=== PATIENT | male | born 1995 | race Caucasian/White ===

== ENCOUNTER 2019-02-27 09:20 | Emergency (ER) | payer SELFPAY ==
--- NOTE | 2019-02-27 09:36 | EDM.PDOC ---
ED HPI GENERAL MEDICAL PROBLEM - General Chief Complaint: Lower Extremity Injury/Pain Stated Complaint: FOOT COMPLAINT Time Seen by Provider: 02/27/19 09:31 - History of Present Illness INITIAL COMMENTS - FREE TEXT/NARRATIVE: HISTORY AND PHYSICAL: History of present illness: Patient's a 24-year-old white male presents concern of left foot pain patient states he is 3 areas of callus on his plantar surface of his foot that has been causing some discomfort but no fever no erythema no fluctuance he does not recall any specific trauma Review of systems: As per history of present illness and below otherwise all systems reviewed and negative. Past medical history: As per history of present illness and as reviewed below otherwise noncontributory. Surgical history: As per history of present illness and as reviewed below otherwise noncontributory. Social history: No reported history of drug or alcohol abuse. Family history: As per history of present illness and as reviewed below otherwise noncontributory. Physical exam: HEENT: Atraumatic, normocephalic, pupils reactive, negative for conjunctival pallor or scleral icterus, mucous membranes moist, throat clear, neck supple, nontender, trachea midline. Lungs: Clear to auscultation, breath sounds equal bilaterally, chest nontender. Heart: S1S2, regular, negative for clicks, rubs, or JVD. Abdomen: Soft, nondistended, nontender. Negative for masses or hepatosplenomegaly. Negative for costovertebral tenderness. Pelvis: Stable nontender. Genitourinary: Deferred. Rectal: Deferred. Extremities: Left foot has 3 areas of callus with some mild tenderness without erythema fluctuance patient's neurovascular exam is heme S is unremarkable. Neuro: Awake, alert, oriented. Cranial nerves II through XII unremarkable. Cerebellum unremarkable. Motor and sensory unremarkable throughout. Exam nonfocal. Diagnostics: X-ray left foot Therapeutics: None Impression: #1 left foot pain Definitive disposition and diagnosis as appropriate pending reevaluation and review of above. left heel Pain Score (Numeric/FACES): 8 - Related Data Allergies Allergy/AdvReac Type Severity Reaction Status Date / Time No Known Allergies Allergy Verified 02/27/19 09:28 Home Meds: Home Meds . [No Known Home Meds] 02/27/19 [History] Review of Systems - Review of Systems Review Of Systems: ROS reveals no pertinent complaints other than HPI. ED EXAM, GENERAL - Physical Exam Exam: See Below (See dictation) Course - Vital Signs Last Recorded V/S: Last Vital Signs Temp 36.2 C 02/27/19 09:28 Pulse 57 L 02/27/19 09:28 Resp 16 02/27/19 09:28 BP 143/65 H 02/27/19 09:28 Pulse Ox 100 02/27/19 09:28 Departure - Departure Time of Disposition: 09:35 Disposition: Home, Self-Care 01 Condition: Good Clinical Impression: Foot pain - Discharge Information Referrals: PCP,Unknown [Primary Care Provider] - Additional Instructions: The following information is given to patients seen in the emergency department who are being discharged to home. This information is to outline your options for follow-up care. We provide all patients seen in our emergency department with a follow-up referral. The need for follow-up, as well as the timing and circumstances, are variable depending upon the specifics of your emergency department visit. If you don't have a primary care physician on staff, we will provide you with a referral. We always advise you to contact your personal physician following an emergency department visit to inform them of the circumstance of the visit and for follow-up with them and/or the need for any referrals to a consulting specialist. The emergency department will also refer you to a specialist when appropriate. This referral assures that you have the opportunity for followup care with a specialist. All of these measure are taken in an effort to provide you with optimal care, which includes your followup. Under all circumstances we always encourage you to contact your private physician who remains a resource for coordinating your care. When calling for followup care, please make the office aware that this follow-up is from your recent emergency room visit. If for any reason you are refused follow-up, please contact the [facility] emergency department at and asked to speak to the emergency department charge nurse. Sam Gonzalez [facility] - Podiatry [address] [place] [id number] Fax: [phone] Motrin/Tylenol as directed follow-up podiatry clinic above call to schedule appointment return as needed as discussed
--- NOTE | 2019-02-27 10:30 | CR ---
INDICATION: Foot pain. TECHNIQUE: Portable AP and lateral projections. FINDINGS: No significant soft tissue swelling is apparent. No acute fractures or dislocations identified and no significant arthritic changes are seen. Incidental os tibiale externum. IMPRESSION: No significant osseous abnormality. Dictated by Paddy Plascencia MD @ Feb 27 2019 10:26AM Signed by Dr. Paddy Plascencia @ Feb 27 2019 10:28AM
== END 2019-02-27 10:44 | disposition home or self-care (01) ==
LOC: MW.ED 09:20
DX: M79.672 Pain in left foot (principal)
CPT/HCPCS: 73620-26-LT; 73620-LT; 99283-25

== ENCOUNTER 2019-09-16 12:37 | Emergency (ER) | payer OTHER ==
--- NOTE | 2019-09-16 13:12 | EDM.PDOC ---
ED HPI GENERAL MEDICAL PROBLEM - General Chief Complaint: Genitourinary Problem Stated Complaint: STD TESTING Time Seen by Provider: 09/16/19 13:03 Source of Information: Reports: Patient History Limitations: Reports: No Limitations - History of Present Illness INITIAL COMMENTS - FREE TEXT/NARRATIVE: HISTORY AND PHYSICAL: History of present illness: Patient is a 24-year-old male presents to the ED with complaint of possible STD. Patient states he has been having penile discharge and dysuria. He reports some testicular discomfort but no swelling. He denies fevers, chills, nausea, vomiting, abdominal pain, diarrhea, hematuria, back pain. Review of systems: As per history of present illness and below otherwise all systems reviewed and negative. Past medical history: As per history of present illness and as reviewed below otherwise noncontributory. Surgical history: As per history of present illness and as reviewed below otherwise noncontributory. Social history: No reported history of drug or alcohol abuse. Family history: As per history of present illness and as reviewed below otherwise noncontributory. Physical exam: General: Patient sitting comfortably in no acute distress and nontoxic appearing HEENT: Atraumatic, normocephalic, pupils reactive, negative for conjunctival pallor or scleral icterus, mucous membranes moist, throat clear, neck supple, nontender, trachea midline. No meningeal signs. Lungs: Clear to auscultation, breath sounds equal bilaterally, chest nontender. Heart: S1S2, regular, negative for clicks, rubs, or overt murmur. Abdomen: Soft, nondistended, nontender. Negative for masses or hepatosplenomegaly. Negative for costovertebral tenderness. No rigidity, rebound , guarding. Pelvis: Stable nontender. Genitourinary: No scrotal swelling, no tenderness to palpation of the cords, testicles, epididymis. Normal cremasteric reflex Rectal: Deferred. Extremities: Atraumatic, negative for cords or calf pain. Neurovascular unremarkable. Neuro: Awake, alert, oriented. Cranial nerves II through XII unremarkable. Cerebellum unremarkable. Motor and sensory unremarkable throughout. Exam nonfocal. Notes: Scrotal exam is benign, no US done today as torsion, fourniers gangrene, etc. unlikely given history and examination. Diagnostics: UA, urine gonorrhea/chlamydia Therapeutics: 250 Rocephin IM 1g Azithromycin PO Prescriptions: none Impression: Penile discharge, STD concern Plan: Refrain from sexual activity for the next 2 weeks as instructed Follow up with primary care provider Return to ED as needed as discussed Definitive disposition and diagnosis as appropriate pending reevaluation and review of above. - Related Data Allergies Allergy/AdvReac Type Severity Reaction Status Date / Time No Known Allergies Allergy Verified 09/16/19 13:03 Home Meds: Home Meds . [No Known Home Meds] 02/27/19 [History] Past Medical History - Past Health History Medical/Surgical History: Denies Medical/Surgical History Social & Family History - Family History Family Medical History: Noncontributory ED ROS GENERAL - Review of Systems Review Of Systems: Comprehensive ROS is negative, except as noted in HPI. ED EXAM, RENAL/ - Physical Exam Exam: See Below (see dictation) Course - Vital Signs Last Recorded V/S: Last Vital Signs Temp 97.8 F 09/16/19 13:01 Pulse 89 09/16/19 13:01 Resp 18 09/16/19 13:01 BP 112/55 L 09/16/19 13:01 Pulse Ox 98 09/16/19 13:01 - Orders/Labs/Meds Orders: Active Orders 24 hr Category Date Time Status CHLAMYDIA AND GONORRHEA BY TMA Stat Lab 09/16/19 12:53 Ordered Labs: Laboratory Tests 09/16/19 Range/Units 13:12 Urine Color YELLOW Urine Appearance CLEAR Urine pH 6.5 (5.0-8.0) Ur Specific [place] 1.025 (1.001-1.035) Urine Protein NEGATIVE (NEGATIVE) mg/dL Urine Glucose (UA) NEGATIVE (NEGATIVE) mg/dL Urine Ketones NEGATIVE (NEGATIVE) mg/dL Urine Occult Blood NEGATIVE (NEGATIVE) Urine Nitrite NEGATIVE (NEGATIVE) Urine Bilirubin NEGATIVE (NEGATIVE) Urine Urobilinogen 0.2 (<2.0) EU/dL Ur Leukocyte Esterase NEGATIVE (NEGATIVE) Meds: Medications Discontinued Medications Generic Name Dose Route Start Last Admin Trade Name Freq PRN Reason Stop Dose Admin Azithromycin 1,000 mg 09/16/19 13:29 Zithromax PO 09/16/19 13:30 NOW STA Ceftriaxone Sodium 250 mg/ 1 mls @ 1 mls/sec 09/16/19 13:29 Lidocaine HCl IM 09/16/19 13:30 ONETIME ONE Departure - Departure Time of Disposition: 13:38 Disposition: Home, Self-Care 01 Condition: Good Clinical Impression: Penile discharge, Concern about STD in male without diagnosis - Discharge Information Referrals: PCP,None [Primary Care Provider] - Forms: ED Department Discharge Additional Instructions: The following information is given to patients seen in the emergency department who are being discharged to home. This information is to outline your options for follow-up care. We provide all patients seen in our emergency department with a follow-up referral. The need for follow-up, as well as the timing and circumstances, are variable depending upon the specifics of your emergency department visit. If you don't have a primary care physician on staff, we will provide you with a referral. We always advise you to contact your personal physician following an emergency department visit to inform them of the circumstance of the visit and for follow-up with them and/or the need for any referrals to a consulting specialist. The emergency department will also refer you to a specialist when appropriate. This referral assures that you have the opportunity for follow-up care with a specialist. All of these measure are taken in an effort to provide you with optimal care, which includes your follow-up. Under all circumstances we always encourage you to contact your private physician who remains a resource for coordinating your care. When calling for follow-up care, please make the office aware that this follow-up is from your recent emergency room visit. If for any reason you are refused follow-up, please contact the [facility] Emergency Department at and asked to speak to the emergency department charge nurse. [facility] [address] [place] [address] [id number] [address] [address] Refrain from sexual activity for the next 2 weeks as instructed Follow up with primary care provider Return to ED as needed as discussed Sepsis Event Note - Evaluation Sepsis Screening Result: No Definite Risk - Focused Exam Vital Signs: Vital Signs Temp Pulse Resp BP Pulse Ox 09/16/19 13:01 97.8 F 89 18 112/55 L 98 Date Exam was Performed: 09/16/19 Time Exam was Performed: 13:31 - My Orders Last 24 Hours: My Active Orders 09/16/19 12:53 CHLAMYDIA AND GONORRHEA BY TMA Stat - Assessment/Plan Last 24 Hours: My Active Orders 09/16/19 12:53 CHLAMYDIA AND GONORRHEA BY TMA Stat
[2019-09-16] MEDS ORDERED: Azithromycin 250 MG Tab PO STA (13:29)
[2019-09-16] MEDS ORDERED: cefTRIAXone 250 MG in Lidocaine 1% 1 ML IM ONE (13:29)
== END 2019-09-16 14:03 | disposition home or self-care (01) ==
LOC: MW.ED 12:37
DX: R36.9 Urethral discharge, unspecified (principal)
CPT/HCPCS: 81003; 87491; 87591; 96372; 99283; A9270; J0696; J2001

== ENCOUNTER 2020-09-05 22:41 | Day surgery (SDC) | payer OTHER ==
[2020-09-05] MEDS ORDERED: Lactated Ringers 1,000 ML IV ONE (23:30)
[2020-09-05] MEDS ORDERED: Ondansetron 4 MG/2 ML SDV IVPUSH ONE (23:30)
[2020-09-05] MEDS ORDERED: Morphine 4 MG/ML Syringe IVPUSH ONE (23:30)
[2020-09-05 23:44] LABS: BLOOD UREA NITROGEN,BUN 12 mg/dL (7.0-18.0); CARBON DIOXIDE,CO2 23.7 mmol/L (21.0-32.0); CHLORIDE,CL 104 mmol/L (98-107); GLUCOSE RANDOM 119 mg/dL (74-106); LIPASE 90 U/L (73-393); POTASSIUM,K 4.1 mmol/L (3.5-5.1); SODIUM,NA 140 mmol/L (136-148)
[2020-09-06] MEDS ORDERED: Iopamidol 755 MG/ML 500 ML Multipack Bottle IVPUSH STA (00:13)
--- NOTE | 2020-09-06 00:28 | CT ---
INDICATION: Right lower quadrant abdominal pain. Evaluate for appendicitis. COMPARISON: None available TECHNIQUE: CT examination of the abdomen and pelvis was performed with the uneventful intravenous administration of 100 cc of Isovue 370 while 2.5 mm thick axial sections were obtained from the lung bases through the pubic symphysis. Oral contrast was not administered. Please note that all CT scans at this facility use dose modulation, iterative reconstruction, and/or weight-based dosing when appropriate to reduce radiation dose to as low as reasonably achievable. FINDINGS: In the abdomen, the liver, spleen, pancreas, and ADRENALS are normal in appearance. The kidneys are normal in appearance. The gallbladder is normal in appearance. The abdominal aorta is normal in caliber with no sign of dilatation. There is no sign of retroperitoneal mass or adenopathy. The stomach, loops of small bowel, and colon in the abdomen are normal in appearance. In the pelvis, the appendix is mildly dilated at 9 millimeters with mild thickening of the wall of the appendix and mild periappendiceal inflammatory reaction. There is no sign of any fluid collection adjacent to the appendix, no sign of any extraluminal gas, and no sign of free fluid in the pelvis. The findings are that of acute, non ruptured appendicitis. The loops of small bowel and colon in the pelvis are normal in appearance. The prostate is normal in appearance. The urinary bladder is normal in appearance. There is no sign of pelvic or inguinal mass or adenopathy. There is no sign of free air or free fluid in the abdomen or pelvis. There is a nodular area of density in the posterior-lateral right lung base which is probably scarring from previous inflammatory disease. Similar nodular scarring is seen in the anterior-lateral left lung base along the major fissure. The lung bases are otherwise clear. The osseous structures are normal in appearance for the patient`s age. IMPRESSION: Normal CT of the abdomen with contrast. CT of the pelvis shows findings of acute, non ruptured appendicitis. Nodular areas of probable scarring in the right posterior-lateral and left anterior-lateral lung base. Please note that all CT scans at this facility use dose modulation, iterative reconstruction, and/or weight-based dosing when appropriate to reduce radiation dose to as low as reasonably achievable. Dictated by Lauro Parisi MD @ Sep 06 2020 12:23AM Signed by Dr. Lauro Parisi @ Sep 06 2020 12:27AM
[2020-09-06] MEDS ORDERED: Piperacillin/Tazobactam 4.5 GM in Sodium Chloride 0.9% 100 ML IV ONE (00:38)
[2020-09-06 01:23] LABS: CORONAVIRUS COVID-19 NAA NEGATIVE (NEGATIVE); INFLUENZA A NAA NEGATIVE (NEGATIVE); INFLUENZA B NAA NEGATIVE (NEGATIVE)
--- NOTE | 2020-09-06 01:41 | PCM.SN.2 ---
- Free Text/Narrative Note: pt seen, chart reviewed, ct and h/p cw acute appendicitis, proceed w surgery, appendectomy, lap vs open, rb dw pt, including but not limited to, bleeding, more infection, damage to nearby organs and drain placement; pt concurred proceed w surgery; anastacia, tor scott, to surgery; [id number]
[2020-09-06] MEDS ORDERED: Lactated Ringers 1,000 ML IV SCH ×2 (01:45→03:30)
[2020-09-06] MEDS ORDERED: Midazolam 1 MG/ML 2 ML SDV ONE (01:52)
[2020-09-06] MEDS ORDERED: fentaNYL 250 MCG/5 ML SDV ONE ×2 (01:52→02:35)
[2020-09-06] MEDS ORDERED: Propofol 200 MG/20 ML SDV ONE (01:52)
[2020-09-06] MEDS ORDERED: Glycopyrrolate 0.2 MG/ML SDV ONE (01:53)
[2020-09-06] MEDS ORDERED: Ondansetron 4 MG/2 ML SDV ONE (01:53)
[2020-09-06] MEDS ORDERED: Rocuronium Bromide 50 MG/5 ML Syringe ONE (01:53)
[2020-09-06] MEDS ORDERED: Lidocaine 2% 5 ML SDV ONE (01:53)
[2020-09-06] MEDS ORDERED: Ketorolac 30 MG/ML SDV ONE (01:53)
[2020-09-06] MEDS ORDERED: Bupivacaine 25%/EPINEPHrine/PF 30 ML ONE (01:53)
[2020-09-06] MEDS ORDERED: Octyl 2-Cyanoacrylate 1 Tube ONE (01:54)
[2020-09-06] MEDS ORDERED: Acetaminophen 1,000 MG in Premix Bag 1 BAG IV PRN (02:10)
[2020-09-06] MEDS ORDERED: fentaNYL 100 MCG/2 ML SDV IVPUSH PRN (02:10)
--- NOTE | 2020-09-06 02:11 | PCM.PREANE ---
Preanesthetic Assessment - Anesthesia/Transfusion/Family Hx Anesthesia History: No Prior Anesthesia Family History of Anesthesia Reaction: No - Physical Assessment NPO Status Date: 09/05/20 NPO Status Time: 18:00 Vital Signs: Last Vital Signs Temp 35.9 C L 09/05/20 22:57 Pulse 75 09/06/20 00:13 Resp 18 09/05/20 22:57 BP 118/55 L 09/06/20 00:13 Pulse Ox 97 09/06/20 00:13 Height: 1.85 m Weight: 84.368 kg ASA Class: 1E - Lab Values: Laboratory Last Values WBC 17.12 K/uL (4.0-11.0) H 09/05/20 23:00 RBC 5.61 M/uL (4.50-5.90) 09/05/20 23:00 Hgb 16.6 g/dL (13.0-17.0) 09/05/20 23:00 Hct 48.1 % (38.0-50.0) 09/05/20 23:00 MCV 85.7 fL (80.0-98.0) 09/05/20 23:00 MCH 29.6 pg (27.0-32.0) 09/05/20 23:00 MCHC 34.5 g/dL (31.0-37.0) 09/05/20 23:00 RDW Std Deviation 43.9 fl (28.0-62.0) 09/05/20 23:00 RDW Coeff of [place] 14 % (11.0-15.0) 09/05/20 23:00 Plt Count 276 K/uL (150-400) 09/05/20 23:00 MPV 11.50 fL (7.40-12.00) 09/05/20 23:00 Neut % (Auto) 83.4 % (48.0-80.0) H 09/05/20 23:00 Lymph % (Auto) 9.6 % (16.0-40.0) L 09/05/20 23:00 [place] % (Auto) 6.0 % (0.0-15.0) 09/05/20 23:00 Eos % (Auto) 0.8 % (0.0-7.0) 09/05/20 23:00 Baso % (Auto) 0.2 % (0.0-1.5) 09/05/20 23:00 Neut # (Auto) 14.3 K/uL (1.4-5.7) H 09/05/20 23:00 Lymph # (Auto) 1.6 K/uL (0.6-2.4) 09/05/20 23:00 [place] # (Auto) 1.0 K/uL (0.0-0.8) H 09/05/20 23:00 Eos # (Auto) 0.1 K/uL (0.0-0.7) 09/05/20 23:00 Baso # (Auto) 0.0 K/uL (0.0-0.1) 09/05/20 23:00 Nucleated RBC % 0.0 /100WBC 09/05/20 23:00 Nucleated RBCs # 0 K/uL 09/05/20 23:00 Sodium 140 mmol/L (136-148) 09/05/20 23:00 Potassium 4.1 mmol/L (3.5-5.1) 09/05/20 23:00 Chloride 104 mmol/L (98-107) 09/05/20 23:00 Carbon Dioxide 23.7 mmol/L (21.0-32.0) 09/05/20 23:00 BUN 12 mg/dL (7.0-18.0) 09/05/20 23:00 Creatinine 1.2 mg/dL (0.8-1.3) 09/05/20 23:00 Est Cr Clr Drug Dosing 107.27 mL/min 09/05/20 23:00 Estimated GFR (MDRD) > 60.0 ml/min 09/05/20 23:00 Glucose 119 mg/dL (74-106) H 09/05/20 23:00 Calcium 8.8 mg/dL (8.5-10.1) 09/05/20 23:00 Total Bilirubin 0.3 mg/dL (0.2-1.0) 09/05/20 23:00 AST 23 IU/L (15-37) 09/05/20 23:00 ALT 39 IU/L (14-63) 09/05/20 23:00 Alkaline Phosphatase 89 U/L (46-116) 09/05/20 23:00 Total Protein 7.8 g/dL (6.4-8.2) 09/05/20 23:00 Albumin 4.2 g/dL (3.4-5.0) 09/05/20 23:00 Globulin 3.6 g/dL (2.6-4.0) 09/05/20 23:00 Albumin/Globulin Ratio 1.2 (0.9-1.6) 09/05/20 23:00 Lipase 90 U/L (73-393) 09/05/20 23:00 Influenza Type A RNA NEGATIVE (NEGATIVE) 09/06/20 00:40 Influenza Type B RNA NEGATIVE (NEGATIVE) 09/06/20 00:40 SARS-CoV-2 RNA (RILEY) NEGATIVE (NEGATIVE) 09/06/20 00:40 - Allergies Allergies/Adverse Reactions: Allergies Allergy/AdvReac Type Severity Reaction Status Date / Time No Known Allergies Allergy Verified 09/05/20 23:01 - Acknowledgements Anesthesia Type Planned: General Anesthesia Pt an Appropriate Candidate for the Planned Anesthesia: Yes Alternatives and Risks of Anesthesia Discussed w Pt/Guardian: Yes Pt/Guardian Understands and Agrees with Anesthesia Plan: Yes PreAnesthesia Questionnaire - Past Health History Medical/Surgical History: Denies Medical/Surgical History HEENT History: Reports: None Cardiovascular History: Reports: None Respiratory History: Reports: None Gastrointestinal History: Reports: None Genitourinary History: Reports: None Musculoskeletal History: Reports: None Neurological History: Reports: None Psychiatric History: Reports: None Endocrine/Metabolic History: Reports: None Hematologic History: Reports: None Immunologic History: Reports: None Oncologic (Cancer) History: Reports: None Dermatologic History: Reports: None - Infectious Disease History Infectious Disease History: Reports: None - Past Surgical History Head Surgeries/Procedures: Reports: None HEENT Surgical History: Reports: None Cardiovascular Surgical History: Reports: None Respiratory Surgical History: Reports: None GI Surgical History: Reports: None Male Surgical History: Reports: None Endocrine Surgical History: Reports: None Neurological Surgical History: Reports: None Musculoskeletal Surgical History: Reports: None Oncologic Surgical History: Reports: None Dermatological Surgical History: Reports: None - SUBSTANCE USE Tobacco Use Status *Q: Current Every Day Tobacco User Tobacco Use Within Last Twelve Months: Cigarettes Recreational Drug Use History: No - HOME MEDS Home Medications: Home Meds . [No Known Home Meds] 02/27/19 [History] - CURRENT (IN HOUSE) MEDS Current Meds: Current Medications Lactated Ringer's (Ringers, Lactated) 1,000 mls @ 150 mls/hr IV ASDIRECTED ALISHA Last Admin: 09/06/20 01:50 Dose: 150 mls/hr Documented by: Discontinued Medications Fentanyl (Sublimaze) Confirm Administered Dose 250 mcg .ROUTE .STK-MED ONE Stop: 09/06/20 01:53 Glycopyrrolate (Robinul) Confirm Administered Dose 0.8 mg .ROUTE .STK-MED ONE Stop: 09/06/20 01:54 Lactated Ringer's (Ringers, Lactated) 1,000 mls @ 999 mls/hr IV .BOLUS ONE Stop: 09/06/20 00:30 Last Admin: 09/05/20 23:36 Dose: 999 mls/hr Documented by: Piperacillin Sod/Tazobactam (Sod 4.5 gm/ Sodium Chloride) 100 mls @ 100 mls/hr IV ONETIME ONE Stop: 09/06/20 01:37 Last Admin: 09/06/20 00:58 Dose: 100 mls/hr Documented by: Bupivacaine HCl/Epinephrine Bitart (Sensorc Mpf 0.25%-Epi [id number]) Confirm Administered Dose 30 mls @ as directed .ROUTE .STK-MED ONE Stop: 09/06/20 01:54 Iopamidol (Isovue Multipack-370 (76%)) 100 ml IVPUSH ONETIME STA Stop: 09/06/20 00:14 Last Admin: 09/06/20 00:14 Dose: 100 ml Documented by: Ketorolac Tromethamine (Toradol) Confirm Administered Dose 30 mg .ROUTE .STK-MED ONE Stop: 09/06/20 01:54 Lidocaine (Xylocaine-Mpf 2%) Confirm Administered Dose 5 ml .ROUTE .STK-MED ONE Stop: 09/06/20 01:54 Midazolam HCl (Versed 1 Mg/Ml) Confirm Administered Dose 2 mg .ROUTE .STK-MED ONE Stop: 09/06/20 01:53 Morphine Sulfate (Morphine) 4 mg IVPUSH ONETIME ONE Stop: 09/05/20 23:31 Last Admin: 09/05/20 23:34 Dose: 4 mg Documented by: Octyl Cyanoacrylate (Dermabond Advance) Confirm Administered Dose 1 applic .ROUTE .STK-MED ONE Stop: 09/06/20 01:55 Ondansetron HCl (Zofran) 4 mg IVPUSH ONETIME ONE Stop: 09/05/20 23:31 Last Admin: 09/05/20 23:34 Dose: 4 mg Documented by: Ondansetron HCl (Zofran) Confirm Administered Dose 4 mg .ROUTE .STK-MED ONE Stop: 09/06/20 01:54 Propofol (Diprivan 20 Ml) Confirm Administered Dose 200 mg .ROUTE .STK-MED ONE Stop: 09/06/20 01:53 Rocuronium Canvas (Rocuronium Canvas) Confirm Administered Dose 50 mg .ROUTE .STK-MED ONE Stop: 09/06/20 01:54
--- NOTE | 2020-09-06 03:22 | EDM.PDOC ---
ED HPI GENERAL MEDICAL PROBLEM - General Chief Complaint: Abdominal Pain Stated Complaint: ABDOMINAL PAIN, VOMITING Time Seen by Provider: 09/05/20 22:54 - History of Present Illness INITIAL COMMENTS - FREE TEXT/NARRATIVE: CHIEF COMPLAINT(S): Abdominal pain HISTORY OF PRESENT ILLNESS: This is a 25-year-old man without any significant past medical history who comes to the emergency department with a chief complaint of abdominal pain. The patient states that approximately 8 hours prior to the arrival after he ate he started to experience some light abdominal pain in his lower quadrant. He states that he had the urge to vomit and then his abdominal pain worsened. He states for the last few hours he has had too many episodes of vomiting to count which was nonbloody and nonbilious. There was small streaks of blood in this. He states that his pain as sharp and 8-10 out of 10 in the lower quadrants without any radiation. He states that sitting down and staying still seems to help it. He denies any melena or hematochezia. He denies any dysuria, hematuria, testicular pain or swelling or penile discharge. He denies any fevers or chills. He has not yet tried anything for the pain and so there is no other relieving factors. He denies any aggravating factors. He states that he has never had pain like this before. REVIEW OF SYSTEMS: Constitutional: Denies fever, chills. Eyes: Denies eye pain Ears, Nose, Mouth, & Throat: Denies earache Cardiovascular: Denies chest pain Respiratory: Denies shortness of breath Gastrointestinal: Positive for lower quadrant abdominal pain and vomiting. Denies diarrhea, hematochezia, melena, hematemesis or bilious emesis Genitourinary: Denies hematuria, dysuria, penile discharge, testicular pain or swelling Skin:Denies a rash MSK: Denies joint pain Neurological: Denies blurred vision Psychiatric: Denies depression PAST MEDICAL HISTORY: As per history of present illness and as reviewed below otherwise noncontributory. SURGICAL HISTORY: As per history of present illness and as reviewed below otherwise noncontributory. SOCIAL HISTORY: As per history of present illness and as reviewed below otherwise noncontributory. FAMILY HISTORY: As per history of present illness and as reviewed below otherwise noncontributory. EXAMINATION OF ORGAN SYSTEMS/BODY AREAS: Constitutional: Blood pressure is 118/55, heart rate 51, respiratory rate 18 with an oxygen saturation of 99% on room air. Temperature 35.9 temporally General: Young man who does not appear to be in any acute distress Psychiatric: Appropriate mood and affect. Eyes: No scleral icterus or conjunctival erythema ENMT: Moist mucous membranes. No pharyngeal erythema Cardiovascular: Regular, rate, and rhythm. No gallops, murmurs, or rubs. Bilateral upper extremity pulses symmetric and intact. No peripheral edema. No JVD. Respiratory: Lungs clear to auscultation bilaterally. No wheezes, rales, or rhonchi. Gastrointestinal: Soft, nondistended, tenderness to palpation in the right lower quadrant without any rebound or guarding. Negative Badillo's. Genitourinary: No suprapubic tenderness Musculoskeletal: Normal range of motion. Skin: No lesions or abrasions. Neurological: Alert, GCS 15 MEDICAL DECISION MAKING AND COURSE IN THE ED WITH INTERPRETATION/REVIEW OF DIAGNOSTIC STUDIES: This is a 25-year-old man and without any significant past medical history who comes to the emergency department with acute onset right lower quadrant abdominal pain associated with vomiting who has stable vital signs. At this time I will make the patient n.p.o. and provide the patient with 1 L of lactated Ringer's bolus, 4 mg of IV morphine and 4 mg of IV Zofran. At this time I do suspect appendicitis. Differential also includes gastritis versus pancreatitis. Will obtain labs including CBC, CMP, lipase. We will also obtain a CT abdomen pelvis with contrast for further evaluation. Laboratory: CBC reveals a leukocytosis of 17.12 with neutrophilic predominance. CMP is unremarkable. Lipase is normal. Covid and influenza are negative. The radiological images were viewed by myself along with reading the report from the radiologist. CT abdomen pelvis with contrast reveals acute nonruptured appendicitis. After imaging I did contact Dr. Spain who stated that he would come and evaluate the patient and take him for surgery. I did discuss the results with the patient he was amenable to this plan. Surgeon did come and evaluate and will take him to the operating room. I did provide the patient with Zosyn IV DISPOSITION: The patient was taken to the operating room. The patient will be admitted for observation CONDITION: Serious PROCEDURES: None FINAL IMPRESSION(S)/DIAGNOSES: 1. Acute appendicitis Jerry Gilliam M.D. Abdomen Pain Score (Numeric/FACES): 10 - Related Data Allergies Allergy/AdvReac Type Severity Reaction Status Date / Time No Known Allergies Allergy Verified 09/05/20 23:01 Home Meds: Home Meds . [No Known Home Meds] 02/27/19 [History] Past Medical History - Past Health History Medical/Surgical History: Denies Medical/Surgical History HEENT History: Reports: None Cardiovascular History: Reports: None Respiratory History: Reports: None Gastrointestinal History: Reports: None Genitourinary History: Reports: None Musculoskeletal History: Reports: None Neurological History: Reports: None Psychiatric History: Reports: None Endocrine/Metabolic History: Reports: None Hematologic History: Reports: None Immunologic History: Reports: None Oncologic (Cancer) History: Reports: None Dermatologic History: Reports: None - Infectious Disease History Infectious Disease History: Reports: None - Past Surgical History Head Surgeries/Procedures: Reports: None HEENT Surgical History: Reports: None Cardiovascular Surgical History: Reports: None Respiratory Surgical History: Reports: None GI Surgical History: Reports: None Male Surgical History: Reports: None Endocrine Surgical History: Reports: None Neurological Surgical History: Reports: None Musculoskeletal Surgical History: Reports: None Oncologic Surgical History: Reports: None Dermatological Surgical History: Reports: None Social & Family History - Family History Family Medical History: No Pertinent Family History - Tobacco Use Tobacco Use Status *Q: Current Every Day Tobacco User Years of Tobacco use: 7 Packs/Tins Daily: 1 - Caffeine Use Caffeine Use: Reports: Coffee, Energy Drinks, Soda - Recreational Drug Use Recreational Drug Use: No ED ROS GENERAL - Review of Systems Review Of Systems: See Below ED EXAM, GENERAL - Physical Exam Exam: See Below Course - Vital Signs Last Recorded V/S: Last Vital Signs Temp 35.9 C L 09/05/20 22:57 Pulse 75 09/06/20 00:13 Resp 18 09/05/20 22:57 BP 118/55 L 09/06/20 00:13 Pulse Ox 97 09/06/20 00:13 - Orders/Labs/Meds Orders: Active Orders 24 hr Category Date Time Status Admission Status [Patient Status] [ADT] Stat ADT 09/06/20 01:38 Active Admission Status [Patient Status] [ADT] Stat ADT 09/06/20 01:42 Active Communication Order [RC] ROUTINE Care 09/06/20 01:42 Active NPO [Nothing Per Oral Diet] [DIET] Diet 09/06/20 Breakfast Active Acetaminophen [Ofirmev 1000 mg/100 ml] 1,000 mg Med 09/06/20 02:10 Active Premix Bag 1 bag IV Q6H Lactated Ringers [Ringers, Lactated] 1,000 ml Med 09/06/20 01:45 Active IV ASDIRECTED fentaNYL [Sublimaze] Med 09/06/20 02:10 Active 50 mcg IVPUSH Q5M PRN Medication Orders Fentanyl (Sublimaze) 50 mcg IVPUSH Q5M PRN PRN Reason: Pain Lactated Ringer's (Ringers, Lactated) 1,000 mls @ 150 mls/hr IV ASDIRECTED ALISHA Last Admin: 09/06/20 01:50 Dose: 150 mls/hr Documented by: SENTHIL Acetaminophen 1,000 mg/ Premix 100 mls @ 400 mls/hr IV Q6H PRN PRN Reason: Pain Labs: Laboratory Tests 09/05/20 09/05/20 09/06/20 Range/Units 23:00 23:00 00:40 WBC 17.12 H (4.0-11.0) K/uL RBC 5.61 (4.50-5.90) M/uL Hgb 16.6 (13.0-17.0) g/dL Hct 48.1 (38.0-50.0) % MCV 85.7 (80.0-98.0) fL MCH 29.6 (27.0-32.0) pg MCHC 34.5 (31.0-37.0) g/dL RDW Std Deviation 43.9 (28.0-62.0) fl RDW Coeff of [place] 14 (11.0-15.0) % Plt Count 276 (150-400) K/uL MPV 11.50 (7.40-12.00) fL Neut % (Auto) 83.4 H (48.0-80.0) % Lymph % (Auto) 9.6 L (16.0-40.0) % Davis % (Auto) 6.0 (0.0-15.0) % Eos % (Auto) 0.8 (0.0-7.0) % Baso % (Auto) 0.2 (0.0-1.5) % Neut # (Auto) 14.3 H (1.4-5.7) K/uL Lymph # (Auto) 1.6 (0.6-2.4) K/uL Davis # (Auto) 1.0 H (0.0-0.8) K/uL Eos # (Auto) 0.1 (0.0-0.7) K/uL Baso # (Auto) 0.0 (0.0-0.1) K/uL Nucleated RBC % 0.0 /100WBC Nucleated RBCs # 0 K/uL Sodium 140 (136-148) mmol/L Potassium 4.1 (3.5-5.1) mmol/L Chloride 104 (98-107) mmol/L Carbon Dioxide 23.7 (21.0-32.0) mmol/L BUN 12 (7.0-18.0) mg/dL Creatinine 1.2 (0.8-1.3) mg/dL Est Cr Clr Drug Dosing 107.27 mL/min Estimated GFR (MDRD) > 60.0 ml/min Glucose 119 H (74-106) mg/dL Calcium 8.8 (8.5-10.1) mg/dL Total Bilirubin 0.3 (0.2-1.0) mg/dL AST 23 (15-37) IU/L ALT 39 (14-63) IU/L Alkaline Phosphatase 89 (46-116) U/L Total Protein 7.8 (6.4-8.2) g/dL Albumin 4.2 (3.4-5.0) g/dL Globulin 3.6 (2.6-4.0) g/dL Albumin/Globulin Ratio 1.2 (0.9-1.6) Lipase 90 (73-393) U/L Influenza Type A RNA NEGATIVE (NEGATIVE) Influenza Type B RNA NEGATIVE (NEGATIVE) SARS-CoV-2 RNA (RILEY) NEGATIVE (NEGATIVE) Meds: Medications Generic Name Dose Route Start Last Admin Trade Name Freq PRN Reason Stop Dose Admin Fentanyl 50 mcg 09/06/20 02:10 Sublimaze IVPUSH Q5M PRN Pain Lactated Ringer's 1,000 mls @ 150 mls/hr 09/06/20 01:45 09/06/20 01:50 Ringers, Lactated IV 150 mls/hr ASDIRECTED ALISHA Administration Acetaminophen 1,000 mg/ Premix 100 mls @ 400 mls/hr 09/06/20 02:10 IV Q6H PRN Pain Discontinued Medications Generic Name Dose Route Start Last Admin Trade Name Lauren PRN Reason Stop Dose Admin Fentanyl Confirm 09/06/20 01:52 Sublimaze Administered 09/06/20 01:53 Dose 250 mcg .ROUTE .STK-MED ONE Fentanyl Confirm 09/06/20 02:35 Sublimaze Administered 09/06/20 02:36 Dose 250 mcg .ROUTE .STK-MED ONE Glycopyrrolate Confirm 09/06/20 01:53 Robinul Administered 09/06/20 01:54 Dose 0.8 mg .ROUTE .STK-MED ONE Lactated Ringer's 1,000 mls @ 999 mls/hr 09/05/20 23:30 09/05/20 23:36 Ringers, Lactated IV 09/06/20 00:30 999 mls/hr .BOLUS ONE Administration Piperacillin Sod/Tazobactam 100 mls @ 100 mls/hr 09/06/20 00:38 09/06/20 00:58 Sod 4.5 gm/ Sodium Chloride IV 09/06/20 01:37 100 mls/hr ONETIME ONE Administration Bupivacaine HCl/Epinephrine Bitart Confirm 09/06/20 01:53 Sensorc Mpf 0.25%-Epi [id number] Administered 09/06/20 01:54 Dose 30 mls @ as directed .ROUTE .STK-MED ONE Iopamidol 100 ml 09/06/20 00:13 09/06/20 00:14 Isovue Multipack-370 (76%) IVPUSH 09/06/20 00:14 100 ml ONETIME STA Administration Ketorolac Tromethamine Confirm 09/06/20 01:53 Toradol Administered 09/06/20 01:54 Dose 30 mg .ROUTE .STK-MED ONE Lidocaine Confirm 09/06/20 01:53 Xylocaine-Mpf 2% Administered 09/06/20 01:54 Dose 5 ml .ROUTE .STK-MED ONE Midazolam HCl Confirm 09/06/20 01:52 Versed 1 Mg/Ml Administered 09/06/20 01:53 Dose 2 mg .ROUTE .STK-MED ONE Morphine Sulfate 4 mg 09/05/20 23:30 09/05/20 23:34 Morphine IVPUSH 09/05/20 23:31 4 mg ONETIME ONE Administration Octyl Cyanoacrylate Confirm 09/06/20 01:54 Dermabond Advance Administered 09/06/20 01:55 Dose 1 applic .ROUTE .STK-MED ONE Ondansetron HCl 4 mg 09/05/20 23:30 09/05/20 23:34 Zofran IVPUSH 09/05/20 23:31 4 mg ONETIME ONE Administration Ondansetron HCl Confirm 09/06/20 01:53 Zofran Administered 09/06/20 01:54 Dose 4 mg .ROUTE .STK-MED ONE Propofol Confirm 09/06/20 01:52 Diprivan 20 Ml Administered 09/06/20 01:53 Dose 200 mg .ROUTE .STK-MED ONE Rocuronium [place] Confirm 09/06/20 01:53 Rocuronium [place] Administered 09/06/20 01:54 Dose 50 mg .ROUTE .STK-MED ONE Departure - Departure Time of Disposition: 01:38 Disposition: Refer to Observation Condition: Serious Clinical Impression: Appendicitis Qualifiers: Appendicitis type: acute appendicitis Acute appendicitis type: unspecified acute appendicitis type Qualified Code(s): K35.80 - Unspecified acute appendicitis - Discharge Information Sepsis Event Note (ED) - Evaluation Sepsis Screening Result: No Definite Risk - Focused Exam Vital Signs: Vital Signs Temp Pulse Resp BP Pulse Ox 09/06/20 00:13 75 118/55 L 97 09/05/20 22:57 35.9 C L 51 L 18 118/55 L 99 - My Orders Last 24 Hours: My Active Orders 09/06/20 01:38 Admission Status [Patient Status] [ADT] Stat 09/06/20 Breakfast NPO [Nothing Per Oral Diet] [DIET] - Assessment/Plan Last 24 Hours: My Active Orders 09/06/20 01:38 Admission Status [Patient Status] [ADT] Stat 09/06/20 Breakfast NPO [Nothing Per Oral Diet] [DIET]
--- NOTE | 2020-09-06 03:27 | PCM.OPNOTE ---
- General Post-Op/Procedure Note Date of Surgery/Procedure: 09/06/20 Operative Procedure(s): lap appy Findings: appendix was engulfed by surrounding organs, indurated, hyperemic, hardened, swelling cw acute appendicitis; gross perferoation not obsvered; [id number] Pre Op Diagnosis: acute appendicitis Post-Op Diagnosis: Same Anesthesia Technique: General ET Tube Primary Surgeon: Hansel Spain Pathology: sent Complications: None Condition: Good
[2020-09-06] MEDS ORDERED: Morphine 4 MG/ML Syringe IVPUSH PRN (03:29)
[2020-09-06] MEDS ORDERED: Ondansetron 4 MG/2 ML SDV IVPUSH PRN (03:29)
[2020-09-06] MEDS ORDERED: Acetaminophen/oxyCODONE 325-5 MG Tab PO PRN (03:29)
--- NOTE | 2020-09-06 03:50 | PCM.POSTAN ---
POST ANESTHESIA ASSESSMENT - MENTAL STATUS Mental Status: Alert - VITAL SIGNS Vital Signs: Last Vital Signs Temp 36.8 C 09/06/20 03:22 Pulse 74 09/06/20 03:42 Resp 18 09/06/20 03:42 BP 122/48 L 09/06/20 03:42 Pulse Ox 97 09/06/20 03:42 - RESPIRATORY Respiratory Status: Respiratory Rate WNL - CARDIOVASCULAR CV Status: Pulse Rate WNL - GASTROINTESTINAL GI Status: No Symptoms - POST OP HYDRATION Hydration Status: Adequate & Stable
[2020-09-06] MEDS: cefOXitin 1 GM in Premix Bag 1 BAG IV SCH ×2 (04:49→08:59)
--- NOTE | 2020-09-06 09:50 | HP ---
DATE OF : 1995 PRIMARY CARE PHYSICIAN: None PCP Consult from Dr. Jerry Gilliam, ER provider. CONSULTING QUESTION: Acute appendicitis. HISTORY OF PRESENT ILLNESS: The patient is a 25-year-old gentleman, complaining over 10-hour history of gradual onset of right lower quadrant pain. Pain was getting worse and sought help in the emergency room and workup included CAT scan, shows dilated appendix 9 mm with periappendiceal inflammation. No free air. No free fluid. Surgery was then consulted. The patient denied prior episode and complaining about the pain was slightly better once in the emergency room. Last meal was about 14 hours ago yesterday. ALLERGIES: Please refer to nursing notes for detail. MEDICATIONS: Please refer to nursing notes for detail. FAMILY HISTORY: Noncontributory. PAST MEDICAL HISTORY: Denied diabetes, CT, CVA, hypertension. PAST SURGICAL HISTORY: No abdominal surgery. SOCIAL HISTORY: The patient is a daily smoker and denied alcohol use. PHYSICAL EXAMINATION: GENERAL: A very pleasant gentleman, smiled at the doctor, in no acute distress. HEENT: Normocephalic, atraumatic. Sclerae anicteric. LUNGS: Clear to auscultation. HEART: Regular rate and rhythm. ABDOMEN: Soft, nondistended. No pulsating tender midline abdominal structure. No surgical scar. No hernia appreciated. Exquisite tenderness in the right lower quadrant, well localized. IMAGING: CAT scan as dictated above. LABORATORY DATA: Blood work: White count is 17, H and H are 17 and 48, and platelets 276. Sodium is 140, potassium is 4.1, BUN is 12, creatinine is 1.2, and glucose is 119. T bili is 0.3. AST, ALT and alkaline phosphatase are within normal limits. Lipase is 90. UA does not show any signs of a UTI. Serology: The patient was positive for gonorrhea in September last year. COVID-19 was negative in May and COVID-19 is negative today. ASSESSMENT AND PLAN: CAT scan and history and physical consistent with acute appendicitis. We will proceed with surgical intervention, proceed with appendectomy, laparoscopic versus open. Risks and benefits discussed with the patient including bleeding, more infection and damage to nearby organs and also possible drain placement in postop course. The patient concurred to proceed as planned. As always, thank you for the kind referral. CHRISTIE / LOUISL /[id number]
--- NOTE | 2020-09-08 08:14 | OR ---
SURGEON: Hansel Spain MD DATE OF PROCEDURE: 09/06/2020 PREOPERATIVE DIAGNOSIS: Acute appendicitis. POSTOPERATIVE DIAGNOSIS: Acute appendicitis. PROCEDURE PERFORMED: Laparoscopic appendectomy. PRIMARY SURGEON: Hansel Spain MD. COMPLICATIONS: None. FINDINGS: Appendix was moderately interacting with surrounding organ and hyperemic and indurated consistent with acute appendicitis. Gross perforation is not observed. DESCRIPTION OF PROCEDURE: The patient was taken to the operating room and placed in the supine position. Following induction of general endotracheal anesthesia, the patient's abdomen was prepped and draped in the sterile fashion. A time-out has been called. The patient was identified. The procedure was identified. The antibiotics were identified. The procedure then proceeded. The abdomen was prepped and draped in a standard fashion. After assessment of appropriate landmarks, a 12 millimeter trocar was inserted supraumbilically using Optiview and pneumoperitoneum was then achieved. This was followed with placement of 5 millimeter port in the right upper quadrant and another 5 millimeter port infraumbilically. The camera was inserted supraumbilical site and two laparoscopic Mark retractors were then inserted through the other two sites. Following the cecum, the appendix was located. The appendix was then lifted up, and using a GI stapler the appendix was amputated at the base. And using the GI stapler, the mesoappendix was then amputated. The appendix was retrieved by an endoscopic bag and sent for pathologist. This was then followed by re-insertion of the camera to examine the staple line, and hemostasis. The trocars were then removed. The umbilical site was closed with 2-0 Vicryl deep stitch and 4-0 Vicryl and Dermabond; the other 2 5 mm port sites were closed with 4-0 Vicryl and Dermabond. The patient was then awakened, extubated, and transferred to the recovery room in hemodynamically stable condition. Prior to closing, sponge count and instrument count was correct. Dr. Spain was present throughout the whole procedure. Intraoperative findings as dictated above. As always, thank you for the kind referral. CHRISTIE / BRUNILDA /[id number]
== END 2020-09-06 12:40 | disposition home or self-care (01) ==
LOC: MW.ED 22:41 → MW.SDS 09-06 01:42 → MW.MS 09-06 03:36 → MW.SDS 09-06 12:40
PROVIDERS: ATTEND Surgery
DX: K35.80 Unspecified acute appendicitis (principal); D72.829 Elevated white blood cell count, unspecified; F17.210 Nicotine dependence, cigarettes, uncomplicated; Z01.812 Encounter for preprocedural laboratory examination; Z20.822 Contact with and (suspected) exposure to COVID-19
CPT/HCPCS: 0240U; 36415; 44970; 74177; 80053; 83690; 85025; 88304; 96361; 96365; 96375; 99285; A9270; C1776; J0694; J1885; J2250; J2270; J2405; J2543; J2704; J3010; J3490; J7120; Q9967; 99284